=== PATIENT | female | born 1935 | race African-American/Black ===

== ENCOUNTER → 2018-05-26 | Outpatient (CLI) | payer MEDICARE, OTHER ==
[~2018-05-26] MED LIST: ANTIVERT 12.512.5 MG PO; ASPIRIN 81M81 MG/TA2 PO; FLONASE NASAL S16 GM NS; GLUCOPHAGE500 MG/TAB PO; HCTZ 25MG TAB25 MG PO; MEDROL 4MG DOSPA4 MG PO; OMNICEF 300MG300 MG PO; PREDNISONE20 MG PO; PRINIVIL40 MG PO; TOPROL XL100 MG PO; ZESTRIL 10MG10 MG PO; ZITHROMAX Z PA250 MG PO; ZOCOR 20MG20 MG PO
== END ==
LOC: MC.RAD 10:57
DX: Z12.31 Encounter for screening mammogram for malignant neoplasm of breast (principal)

== ENCOUNTER 2019-03-16 11:47 | Emergency (ER) | payer MEDICARE ==
[~2019-03-16] VITALS: Ht 147.3 cm; Wt 72.7 kg
[2019-03-16 12:36] LABS: BASO % 0.5 % (0.0-2.0); EOS # 0.2 (0.0-0.7); EOS % 2.4 % (0-4.0); GRAN # 3.7 (1.4-6.5); GRAN % 58.3 % (42.2-75.2); HEMATOCRIT 44.7 % (37.0-47.0); HEMOGLOBIN 14.1 g/dl (12.5-16.0); LYMPH # 1.9 (1.2-3.4); LYMPH % 30.5 % (20.0-51.0); MEAN CELL VOLUME 89 fl (80.0-100.0); MEAN CORPUSCULAR HEMOGLOBIN 28 pg (27.0-31.0); MEAN CORPUSCULAR HGB CONC 32 g/dl (33.0-37.0); MEAN PLATELET VOLUME 10.5 fl (7.4-10.4); MONO # 0.5 (0.1-0.6); MONO % 7.8 % (1.7-9.3); PLATELET COUNT 258 K/mm3 (130-400); RED BLOOD COUNT 5.02 M/mm3 (4.10-5.30)
[2019-03-16] MEDS ORDERED: FISH OIL 500 M1 EAC1 PO (12:45)
[2019-03-16] MEDS ORDERED: OMEGA-3 1000 MG1 CAP PO (12:45)
[2019-03-16 12:46] LABS: ALANINE AMINOTRANSFERASE 7 U/L (9-52); ALKALINE PHOSPHATASE 73 U/L (50-136); ANION GAP 10 mmol/L (7-16); AST,SGOT 20 U/L (15-37); BILIRUBIN,TOTAL 0.5 mg/dL (0.0-1.0); BLOOD UREA NITROGEN 14 mg/dL (7-17); CALCIUM 9.1 mg/dL (8.4-10.2); CARBON DIOXIDE 29 mmol/L (22-30); CHLORIDE 104 mmol/L (98-107); CREATININE, serum 0.75 (0.52-1.25); GLUCOSE 101 mg/dL (74-106); POTASSIUM 4.1 mmol/L (3.4-5.0); SODIUM 143 mmol/L (137-145); TOTAL PROTEIN 7.7 gm/dL (6.4-8.2)
[2019-03-16 13:03] LABS: TROPONIN-I < 0.012 ng/mL (0.000-0.035)
[2019-03-16 14:00] VITALS: BP 179/85; PULSE 76; TEMP 98.1
== END 2019-03-16 14:00 | disposition home or self-care (01) ==
LOC: COL.ER 11:47
PROVIDERS: Emergency Medicine
DX: I10 Essential (primary) hypertension (principal); E11.9 Type 2 diabetes mellitus without complications; E78.5 Hyperlipidemia, unspecified; Z79.84 Long term (current) use of oral hypoglycemic drugs; Z79.82 Long term (current) use of aspirin

== ENCOUNTER → 2019-05-17 | Outpatient (CLI) | payer MEDICARE ==
[~2019-05-17] MED LIST changes: +FISH OIL 500 M1 EAC1 PO; +OMEGA-3 1000 MG1 CAP PO
== END ==
LOC: MC.RAD 09:33
DX: Z12.31 Encounter for screening mammogram for malignant neoplasm of breast (principal)

== ENCOUNTER → 2020-05-19 | Outpatient (CLI) | payer MEDICARE | LOC: MC.RAD 09:43 | DX: Z12.31 Encounter for screening mammogram for malignant neoplasm of breast (principal) ==

== ENCOUNTER 2020-12-22 12:50 | Inpatient (IN) | payer MEDICARE ==
[~2020-12-22] VITALS: Ht 165.1 cm; Wt 62.5 kg
[~2020-12-22 12:50] MED LIST changes: +ASPIRIN 81M81 MG/TA2 PEG; -ASPIRIN 81M81 MG/TA2 PO; +HCTZ 25MG TAB25 MG PEG; -HCTZ 25MG TAB25 MG PO; +OMEGA-3 1000 MG1 CAP PEG; -OMEGA-3 1000 MG1 CAP PO; +PRINIVIL40 MG PEG; -PRINIVIL40 MG PO
[2020-12-22 13:50] LABS: BASO % 0.3 % (0.0-2.0); EOS # 0.1 (0.0-0.7); EOS % 1.2 % (0-4.0); GRAN # 3.3 (1.4-6.5); GRAN % 56.7 % (42.2-75.2); HEMATOCRIT 41.4 % (37.0-47.0); HEMOGLOBIN 13.3 g/dl (12.5-16.0); LYMPH # 1.9 (1.2-3.4); LYMPH % 32.7 % (20.0-51.0); MEAN CELL VOLUME 89 fl (80.0-100.0); MEAN CORPUSCULAR HEMOGLOBIN 29 pg (27.0-31.0); MEAN CORPUSCULAR HGB CONC 32 g/dl (33.0-37.0); MEAN PLATELET VOLUME 10.5 fl (7.4-10.4); MONO # 0.5 (0.1-0.6); MONO % 8.9 % (1.7-9.3); PLATELET COUNT 239 K/mm3 (130-400); RED BLOOD COUNT 4.66 M/mm3 (4.10-5.30); REDCELL DISTRIBUTION WIDTH-CV 12.4 % (11.5-14.5)
[2020-12-22 14:00] LABS: PROTHROMBIN TIME 10.8 SECONDS (9.7-12.8)
[2020-12-22 14:03] LABS: ALANINE AMINOTRANSFERASE 9 U/L (4-34); ALBUMIN 3.9 gm/dL (3.5-5.0); ALKALINE PHOSPHATASE 48 U/L (50-136); ANION GAP 4 mmol/L (7-16); AST,SGOT 21 U/L (15-37); BILIRUBIN,TOTAL 0.4 mg/dL (0.0-1.0); BLOOD UREA NITROGEN 20 mg/dL (7-17); CALCIUM 10.2 mg/dL (8.4-10.2); CARBON DIOXIDE 30 mmol/L (22-30); CHLORIDE 106 mmol/L (98-107); CREATININE, serum 0.99 (0.52-1.25); GLUCOSE 100 mg/dL (74-106); POTASSIUM 3.9 mmol/L (3.4-5.0); SODIUM 140 mmol/L (137-145)
[2020-12-22] MEDS ORDERED: NORVASC 5MG5 MG/TAB PEG (14:16)
[2020-12-22] MEDS ORDERED: APOAEQUORIN (14:17)
[2020-12-22 14:18] LABS: TROPONIN-I < 0.012 ng/mL (0.000-0.035)
[2020-12-22] MEDS ORDERED: LIPITOR 80MG80 MG PEG (14:18)
[2020-12-22] MEDS ORDERED: HCTZ 25MG TAB25 MG PO (14:18)
[2020-12-22] MEDS ORDERED: PREDFORTE15ML OU (14:19)
[2020-12-22] MEDS ORDERED: LEADER EYE ITCH5 ML OP (14:19)
--- NOTE | 2020-12-22 18:50 | NUR ---
PT ARRIVES TO ROOM 326 VIA CART FROM ED. IS ALERT, ORIENTED X2. SON AT BEDSIDE. PT HAS CARDIZEM GTT AT 10CC/HR INFUSING TO RIGHT AC SITE. HAS IVF TO LEFT UPPER ARM IV SITE, NO REDNESS OR SWELLING NOTED. 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 IS WEAK FROM HX OF CVA LAST YEAR. FORGETFUL AND CAN BE IMPULSIVE, BED ALARM SET FOR SAFETY. ORIENTED TO CALL LIGHT.
[2020-12-22 19:39] LABS: PARTIAL THROMBOPLASTIN TIME 34.3 SECONDS (26.0-37.0)
--- NOTE | 2020-12-22 20:00 | NUR ---
NOTIFIED VELMA GUPTA OF PTS HR AND ORDER FOR CARDIZEM TO BE 5CC/HR. DECREASED RATE AT THIS TIME.
[2020-12-22 20:21] VITALS: BP 167/57; PULSE 70; TEMP 98.4
--- NOTE | 2020-12-22 20:30 | NUR ---
INITIATED HEPARIN GTT, IVF DC'D. HEPARIN INFUSING AT 14CC/HR TO LEFT UPPER ARM SITE. PT TAKES HS MEDS WITHOUT PROBLEM. ASSISTED TO BSC WITH 2, WEAKNESS OF RT SIDE APPARENT. BACK TO BED WITH BED ALARM SET.
[2020-12-23 00:52] VITALS: BP 149/46; PULSE 55; TEMP 98.1
--- NOTE | 2020-12-23 01:35 | NUR ---
NOTIFIED VELMA GUPTA OF PTS HR IN 40-50'S. STOPPED CARDIZEM GTT AT THIS TIME.
--- NOTE | 2020-12-23 03:00 | NUR ---
HEP XA >2.0, STOPPED HEP GTT AT THIS TIME FOR 2 HOURS.
[2020-12-23 04:19] VITALS: BP 143/53; PULSE 48; TEMP 97.7
--- NOTE | 2020-12-23 05:10 | NUR ---
LAB UNABLE TO DRAW HEP XA AT THIS TIME.
[2020-12-23 07:46] VITALS: BP 174/88; PULSE 62; TEMP 97.6
[2020-12-23 07:48] LABS: PARTIAL THROMBOPLASTIN TIME 81.9 SECONDS (26.0-37.0)
--- NOTE | 2020-12-23 11:02 | NUR ---
Patient has been doing ok this morning. She has been alert but confused. Attempted to give her pills this am but she was not able to swallow them or the water was trying to use to give her pills. She was able to answer questions but did not seem to understand she needed to try swallowing. Her son went home but will be back later. No other changes at this time. Call light within reach.
[2020-12-23 11:10] VITALS: BP 157/68; PULSE 47; TEMP 97.9
--- NOTE | 2020-12-23 11:57 | NUR ---
First visit from the cad detailer. Patient was asleep, cad detailer prayed for the patient while standing outside their door.
[2020-12-23 15:48] VITALS: BP 171/65; PULSE 62; TEMP 98.1
--- NOTE | 2020-12-23 16:57 | NUR ---
Patient seems to be getting worse this afternoon. She is still alert and able to answer most yes and no questions. Denies pain. Elaine has seen her and she was able to swallow with them. Waiting for MRI to be completed. Her son was here when ST worked with her so he is aware of what is going on. Hep Xa level was high, turned off per protocol. No other changes at this time. Call light within reach.
[2020-12-23 18:15] LABS: PARTIAL THROMBOPLASTIN TIME 108.4 SECONDS (26.0-37.0)
--- NOTE | 2020-12-23 19:31 | NUR ---
Patient went down for MRI. Spoke with Vicki GUPTA about patients hep xa and PTT. Her PTT is 108.4 and her Hep Xa continues to be high as well. She changed the medication and discontinued heparin drip. No other changes at this time. Call light within reach. Bed alarm on.
--- NOTE | 2020-12-23 20:00 | NUR ---
PATIENT IS ORIENTED X2 AND DISPLAYS SOME CONFUSION/FORGETFULNESS. NOTED ELEVATED B/P, GAVE PRN HYDRALAZINE ORDER. ALL OTHER VSS ON TELE. HEART SOUNDS IRREGULAR. PATIENT ADMITTED TO SURGICAL FLOOR WITH A-FIB THAT IS RATE CONTROLED IN THE 60'S. PATIENT IS SCHEDULED FOR LOOP RECORDER IN THE AM. NPO. HEAD TO TOE ASSESSMENT COMPLETE. PATIENT GOING DOWN FOR MRI. HEPARIN GTT STOPPED. SEE ORDERS FOR LOVENOX.
[2020-12-23 20:05] VITALS: BP 142/103; PULSE 96; TEMP 97.5
[2020-12-24 00:35] VITALS: BP 157/70; PULSE 84; TEMP 97.6
[2020-12-24 03:50] VITALS: BP 152/76; PULSE 84; TEMP 97.9
[2020-12-24 07:15] LABS: HEMATOCRIT 41.7 % (37.0-47.0); HEMOGLOBIN 13.3 g/dl (12.5-16.0); MEAN CELL VOLUME 90 fl (80.0-100.0); MEAN CORPUSCULAR HEMOGLOBIN 29 pg (27.0-31.0); MEAN CORPUSCULAR HGB CONC 32 g/dl (33.0-37.0); MEAN PLATELET VOLUME 10.5 fl (7.4-10.4); PLATELET COUNT 232 K/mm3 (130-400); RED BLOOD COUNT 4.66 M/mm3 (4.10-5.30); REDCELL DISTRIBUTION WIDTH-CV 12.7 % (11.5-14.5)
[2020-12-24 07:36] VITALS: BP 149/87; PULSE 68; TEMP 98.7
--- NOTE | 2020-12-24 09:09 | NUR ---
(late entry 12/23) Network Engineer Administrator contacted the patient's son, Adan Barrera to complete intake. The patient lives in [place] with Adan. The patient has cane, walker, 4WW and a bedside commode. The patient's PCP is and patient receives medications from [facility]. The patient does not have advanced directives in the EMR. Adan states they complete. The state's attorney Chris Gurrola completed them. SW addressed the patient's falls with Adan and discussed post acute rehab. Adan states he would like to do what the patient would like. He would be agreeable to whatever she thinks is best. PT is recommending post acute rehab. SYLVIE met with the patient to present Medicare.gov's list of SNF and to discuss PTs recommendation. She states that she has been to [facility] and does not want to return there. The patient's first choice is [facility] and second [facility]. Referrals sent. Awaiting screens. SYLVIE contacted Chris Gurrola' office regarding the DPOA-HC. The operator receptionist states he would check with Mr. Gurrola regarding sending DPOA-HC. Awaiting response. *Discharge disposition: SNF. First choice [facility] and Second Choice [facility]. Awaiting screens.
--- NOTE | 2020-12-24 11:00 | NUR ---
Patient is not able to swallow. She tries but does not have the force to make the liquid or food go down. She is very weak. Had to suction her mouth after she tried to eat breakfast because the food would not go down. Oral care provided at this time as well. She is able to answer some yes and now questions, she denies pain and nausea. She is incontinent of urine, no bowel movements yet. Have been turning side to side. She tolerates repositioning well. She is still able to use her hands without issues and lift her legs. She struggles with speach and swallowing. Her son has been here this morning. No other changes at this time. Call light within reach.
[2020-12-24 12:00] VITALS: BP 158/71; PULSE 74; TEMP 98.6
[2020-12-24 16:00] VITALS: BP 154/62; PULSE 79; TEMP 99
--- NOTE | 2020-12-24 16:30 | NUR ---
Oscar from [facility] reports they have accepted the patient for post acute rehab and he will submit for authorization. Yarelis from [facility] reports they can accept the patient for post acute rehab.
[2020-12-24 16:44] LABS: MAGNESIUM 1.7 mg/dL (1.6-2.3); PHOSPHOROUS 3.8 mg/dL (2.5-4.5)
[2020-12-24 16:45] LABS: BASO % 0.2 % (0.0-2.0); EOS # 0.1 (0.0-0.7); GRAN # 3.5 (1.4-6.5); GRAN % 56.8 % (42.2-75.2); HEMATOCRIT 43.4 % (37.0-47.0); HEMOGLOBIN 13.8 g/dl (12.5-16.0); LYMPH # 1.9 (1.2-3.4); LYMPH % 31.4 % (20.0-51.0); MEAN CELL VOLUME 89 fl (80.0-100.0); MEAN CORPUSCULAR HEMOGLOBIN 28 pg (27.0-31.0); MEAN CORPUSCULAR HGB CONC 32 g/dl (33.0-37.0); MEAN PLATELET VOLUME 11.5 fl (7.4-10.4); MONO # 0.6 (0.1-0.6); MONO % 10.4 % (1.7-9.3); PLATELET COUNT 238 K/mm3 (130-400); RED BLOOD COUNT 4.89 M/mm3 (4.10-5.30); REDCELL DISTRIBUTION WIDTH-CV 12.7 % (11.5-14.5)
[2020-12-24 16:49] LABS: ALBUMIN 3.9 gm/dL (3.5-5.0); BILIRUBIN,TOTAL 0.8 mg/dL (0.0-1.0); CALCIUM 9.5 mg/dL (8.4-10.2); CREATININE, serum 0.84 (0.52-1.25); POTASSIUM 3.5 mmol/L (3.4-5.0)
[2020-12-24 16:51] LABS: PRE ALBUMIN 18.3 mg/dL (17.6-36.0)
--- NOTE | 2020-12-24 18:30 | NUR ---
Patient has been doing well this afternoon. She got the dobhoff tube placed for tube feeds and medications. It is flusing well without issues. Explained this to her son and daughter today. Her son seems to have some confusion about what she will need after discharge. Explained she will need rehab due to the stroke. He still thought he would be taking her home. Explained that is not likely at this time. He verbalized understanding. She got her Loop recorder placed late this afternoon as well. No other changes at this time. Call light within reach.
[2020-12-24 19:40] VITALS: BP 130/66; PULSE 103; TEMP 97
--- NOTE | 2020-12-24 19:44 | NUR ---
Tube feeds started. Was supposed to start sooner but was waiting for the feeding. Patient so far is tolerating the feedings. Started at ordered rate of 15ml/hr with a 100ml Q4hr water flush. Explained to die sinking machine operator nurse that this needs increased every 8 hours with the goal of 45ml/hr. No other changes at this time. Call light within reach.
--- NOTE | 2020-12-24 21:32 | NUR ---
REPORT RECEIVED FROM NURSE ZENY. PATIENT RESTING IN BED, STARTED ON NEW TUBE FEED. HOB ELEVATED. PATIENT APPEARED COMFORTABLE ON NO APPARENT DISTRESS. BED ALARM ON. WILL CONTINUE TO MONITOR.
[2020-12-25] VITALS (7 sets, daily range): BP systolic 106–193; BP diastolic 53–71; PULSE 69–97; TEMP 97.5–99
[2020-12-25 06:43] LABS: BASO % 0.2 % (0.0-2.0); EOS % 0.8 % (0-4.0); GRAN # 2.9 (1.4-6.5); GRAN % 59.4 % (42.2-75.2); HEMATOCRIT 39.5 % (37.0-47.0); HEMOGLOBIN 12.4 g/dl (12.5-16.0); LYMPH # 1.3 (1.2-3.4); LYMPH % 26.5 % (20.0-51.0); MEAN CELL VOLUME 91 fl (80.0-100.0); MEAN CORPUSCULAR HEMOGLOBIN 28 pg (27.0-31.0); MEAN CORPUSCULAR HGB CONC 31 g/dl (33.0-37.0); MEAN PLATELET VOLUME 11.4 fl (7.4-10.4); MONO # 0.6 (0.1-0.6); MONO % 12.9 % (1.7-9.3); PLATELET COUNT 234 K/mm3 (130-400); RED BLOOD COUNT 4.36 M/mm3 (4.10-5.30); REDCELL DISTRIBUTION WIDTH-CV 12.9 % (11.5-14.5)
[2020-12-25 06:55] LABS: ALBUMIN 3.4 gm/dL (3.5-5.0); BILIRUBIN,TOTAL 0.8 mg/dL (0.0-1.0); CALCIUM 9.4 mg/dL (8.4-10.2); CREATININE, serum 1.34 (0.52-1.25); POTASSIUM 3.4 mmol/L (3.4-5.0); TOTAL PROTEIN 7.1 gm/dL (6.4-8.2)
--- NOTE | 2020-12-25 08:29 | NUR ---
CONSULT CALLED TO .
[2020-12-25 08:41] LABS: CHOLESTEROL RISK RATIO 5.3
--- NOTE | 2020-12-25 09:05 | NUR ---
PT SLEEPING IN BED DURING ASSESSMENT. PT HERE TO WORK WITH PT.PT ABLE TO FOLLOW DIRECTIONS. JEVITY RUNNING @ 30 MLS/HR WITH GOAL OF 45 TO BE ACHIEVED AT 12:00. DR. JIM NOTIFIED OF CONSULT.
--- NOTE | 2020-12-25 09:58 | NUR ---
Chris Gurrola' office emailed the patient's DPOA-HC to this Airplane Dispatch Clerk. It designates the patient's daughter, Jovana and son, Adan. A copy was placed in the chart. SW attended clinical rounds with the team. Palliative Care consulted.
--- NOTE | 2020-12-25 11:04 | NUR ---
Oscar with [facility] contacted this Crusher Operator regarding the patient's insurance. [facility] is not in-network. The patient has a $5500 deductible. The following are copays apply if the deductible has not been met. Days 1-20 $0 copay; Days 21-57 $184, and Days 58-[address] [facility] has accepted the patient for post acute rehab if the patient and family are agreeable to the above copays.
--- NOTE | 2020-12-25 14:50 | NUR ---
I was told by Dr Lew today that he had talked with son and didn't feel that family meeting was now needed as son has opted for a PEG tube to be placed. He is very aware that his mother may not show a lot of improvement from this stroke. He is aware that she does not seem to be able to swallow, that she has been getting tube feeding through dobhoff and how must decide if wants feeding tube placed. Son Adan reports that he believes that she would want everything done to help her get better. He is aware of the risks of having a feeding tube placed including aspiration. He also asked that I call his sister Jovana who is also a DPOA-HC and visit with her. She is in agreement with her brother and reported that they had already talked about a feeding tube placement. She seemed pleased that it would be placed tomorrow. Jovana reports that she will try to come early next week to be with her mother but also must prepare for what could be a long stay. Support provided to Adan and Jovana. They are not ready to look at hospice yet although both clearly verbalize the very limited recovery and risks that are present.
--- NOTE | 2020-12-25 17:13 | NUR ---
PT HAS BEEN INCONTINENT OF BLADDER THIS SHIFT. PERICARE AND INCONTINENT CARES PROVIDED NEEDED. SON HAS BEEN IN TO SEE PT AGAIN THIS PM.
--- NOTE | 2020-12-25 20:00 | NUR ---
PT RESPONDS TO QUESTIONS, ORIENTED X2. HAS DOBBHOFF TO RT JUVE, OMAYRA AT 34CM. HAS TUBE FEEDING INFUSING AT 45CC/HR. RT EYE BLIND. LEFT ARM FLACCID. IS INCONTINENT OF URINE. IVF TO RIGHT UPPER ARM PICC. SCDS ON.
--- NOTE | 2020-12-25 21:00 | NUR ---
PO MEDS CRUSHED AND GIVEN PER DOBBHOFF. PT GIVEN ORAL CARES AND OCC SUCTIONING OF THIN SECRETIONS.
[2020-12-26] VITALS (15 sets, daily range): BP systolic 126–194; BP diastolic 52–97; PULSE 64–98; TEMP 97.6–99.3
--- NOTE | 2020-12-26 00:30 | NUR ---
TUBE FEEDING STOPPED, PT TO HAVE EGD W/PEG TUBE PLACED TODAY.
--- NOTE | 2020-12-26 04:00 | NUR ---
PT WILL TALK WITH STAFF, ORIENTED X2. TUBE FEED STOPPED FOR EGD/PEG PLACEMENT TODAY. IVF CONTINUE TO RT PICC.
[2020-12-26 06:53] LABS: HEMATOCRIT 37.1 % (37.0-47.0); HEMOGLOBIN 11.9 g/dl (12.5-16.0); MEAN CELL VOLUME 90 fl (80.0-100.0); MEAN CORPUSCULAR HEMOGLOBIN 29 pg (27.0-31.0); MEAN CORPUSCULAR HGB CONC 32 g/dl (33.0-37.0); MEAN PLATELET VOLUME 11.5 fl (7.4-10.4); PLATELET COUNT 200 K/mm3 (130-400); RED BLOOD COUNT 4.12 M/mm3 (4.10-5.30); REDCELL DISTRIBUTION WIDTH-CV 12.8 % (11.5-14.5)
[2020-12-26 07:06] LABS: CREATININE, serum 0.83 (0.52-1.25); POTASSIUM 3.4 mmol/L (3.4-5.0)
[2020-12-26 07:22] LABS: CALCIUM 8.7 mg/dL (8.4-10.2)
--- NOTE | 2020-12-26 08:00 | NUR ---
Patient in bed, alert and oriented x 3, slow to respond. Answers questions appropriately. Left arm flacid. Dobhoff to right arora. PICC line to CALLI without complications. Fluids infusing per orders. Denies needs at this time.
--- NOTE | 2020-12-26 09:37 | NUR ---
I have spoken with Adan and Jovana by phone this morning to clarify that we will have a family meeting on Tuesday. Jovana is planning on being here and both she and Adan can do a family meeting on Tuesday and visit with their Mom but that is the only day that Jovana can visit as Adan is the designated visitor. Both verbalize understanding.
--- NOTE | 2020-12-26 12:00 | NUR ---
Patient to endo by bed.
--- NOTE | 2020-12-26 13:03 | NUR ---
Patient back to room 326 by bed. Post op VSS and post op fluids infusing per orders. Denies needs at this time.
--- NOTE | 2020-12-26 16:17 | NUR ---
Contacted Frida GUPTA, post void residual of 300 ml. No new orders at this time.
--- NOTE | 2020-12-26 18:34 | NUR ---
Patient doing well throughout the day, repositioned throughout the day. Patient sitting up at approximately 60 degrees. Will answer questions appropriately, slow to answer. Denies needs at this time. Will report off to material handler 1st shift.
--- NOTE | 2020-12-26 20:31 | NUR ---
Patient has a PICC line that just put in at noon. She have a oral pill that was hold for she is NPO. Oral care given. She is awake and oriented but very slow to answer questions. She is calm and comfortablem in bed. Denies pain or SOB. bed alarm is on and call light is within reach continue to follow.
[2020-12-27 03:00] LABS: COLLECTION METHOD CLEAN CATCH
[2020-12-27 03:05] LABS: PH 6 (5-8); SQUAMOUS EPITHELIAL 0-2 /hpf; URINE APPEARANCE Clear; URINE BACTERIA None Seen /hpf; URINE BILIRUBIN Negative (NEGATIVE); URINE BLOOD Negative (NEGATIVE); URINE COLOR Yellow; URINE GLUCOSE Negative (NEGATIVE); URINE KETONE Trace (NEGATIVE); URINE LEUKOCYTE ESTERASE Negative (NEGATIVE); URINE NITRATE Negative (NEGATIVE); URINE PROTEIN(semi-quant) Negative (NEGATIVE); URINE RBC 0-2 /hpf; URINE UROBILINOGEN Negative (NEGATIVE); URINE WBC 0-2 /hpf
[2020-12-27 03:59] VITALS: BP 151/48; PULSE 73; TEMP 98.3
[2020-12-27 06:14] LABS: BASO % 0.3 % (0.0-2.0); EOS % 0.1 % (0-4.0); GRAN # 8.2 (1.4-6.5); HEMOGLOBIN 11.3 g/dl (12.5-16.0); LYMPH # 1.3 (1.2-3.4); LYMPH % 12.5 % (20.0-51.0); MEAN CELL VOLUME 89 fl (80.0-100.0); MEAN CORPUSCULAR HEMOGLOBIN 28 pg (27.0-31.0); MEAN CORPUSCULAR HGB CONC 32 g/dl (33.0-37.0); MEAN PLATELET VOLUME 12.1 fl (7.4-10.4); MONO # 0.9 (0.1-0.6); MONO % 8.5 % (1.7-9.3); PLATELET COUNT 175 K/mm3 (130-400); RED BLOOD COUNT 4.01 M/mm3 (4.10-5.30); REDCELL DISTRIBUTION WIDTH-CV 12.7 % (11.5-14.5)
[2020-12-27 06:15] LABS: HEMATOCRIT 35.7 % (37.0-47.0)
[2020-12-27 06:26] LABS: CALCIUM 7.7 mg/dL (8.4-10.2); CREATININE, serum 0.65 (0.52-1.25); MAGNESIUM 1.5 mg/dL (1.6-2.3); POTASSIUM 3.2 mmol/L (3.4-5.0)
[2020-12-27 07:23] VITALS: BP 130/63; PULSE 71; TEMP 97.7
[2020-12-27 11:29] VITALS: BP 154/59; PULSE 77; TEMP 97.6
--- NOTE | 2020-12-27 18:30 | NUR ---
Patient slept most the day. Her son came by twice to visit her. Repositioned her throughout the day. She is able to answer yes and now questions. She is not have to lift or use left hand. Her left leg is weak as well. Did oral care every few hours today. She swallowed once but was very weak. First tube feeding given this afternoon, she tolerated well. Sat her up in the bed with the tube feeding. She asked about eating, explained again why she can't eat. Denies nausea or pain. No other changes at this time. Call light within reach.
[2020-12-27 20:36] VITALS: BP 136/56; PULSE 62; TEMP 98.1
--- NOTE | 2020-12-27 21:30 | NUR ---
Pt. laying in bed at this time. Pt. is alert and confused. PICC to rt. upper arm, IV fluids infusing per orders. Peg to intact, tube feeding provided per orders. Pt. tolerated well. Pt. denies pain or other needs, call light within reach.
[2020-12-27 23:59] VITALS: BP 117/43; PULSE 65; TEMP 98.2
[2020-12-28] VITALS (7 sets, daily range): BP systolic 106–146; BP diastolic 21–66; PULSE 61–73; TEMP 97.5–98.5
[2020-12-28 06:19] LABS: BASO % 0.2 % (0.0-2.0); EOS # 0.1 (0.0-0.7); EOS % 1.1 % (0-4.0); GRAN % 75.1 % (42.2-75.2); HEMOGLOBIN 10.7 g/dl (12.5-16.0); LYMPH # 0.9 (1.2-3.4); LYMPH % 11.5 % (20.0-51.0); MEAN CELL VOLUME 91 fl (80.0-100.0); MEAN CORPUSCULAR HEMOGLOBIN 29 pg (27.0-31.0); MEAN CORPUSCULAR HGB CONC 32 g/dl (33.0-37.0); MEAN PLATELET VOLUME 12.5 fl (7.4-10.4); MONO # 0.9 (0.1-0.6); MONO % 11.6 % (1.7-9.3); PLATELET COUNT 178 K/mm3 (130-400); RED BLOOD COUNT 3.71 M/mm3 (4.10-5.30)
[2020-12-28 06:27] LABS: HEMATOCRIT 33.7 % (37.0-47.0)
[2020-12-28 06:31] LABS: CALCIUM 8.3 mg/dL (8.4-10.2); CREATININE, serum 0.75 (0.52-1.25); MAGNESIUM 2.4 mg/dL (1.6-2.3); POTASSIUM 3.8 mmol/L (3.4-5.0)
--- NOTE | 2020-12-28 09:10 | NUR ---
Greta faxed over auth to [facility]. 12/28 at 9:10 AM
--- NOTE | 2020-12-28 18:30 | NUR ---
Patient did well today. Denies nausea and pain. Tolerating her tube feedings without issues. Started her on the full can of feeds. Less than 20ml noted when checking residuals. She did swallow a small amount of liquid when doing oral care, no choking noted. Eagle changed twice today. She is passing flatus and thought she had a bowel movement, has not had once sice before admit. Her family was at bedside most the day. No other changes at this time. Call light within reach.
[2020-12-29 00:30] VITALS: BP 135/49; PULSE 63; TEMP 98.9
[2020-12-29 04:00] VITALS: BP 140/45; PULSE 62; TEMP 98.9
--- NOTE | 2020-12-29 06:00 | NUR ---
PT RESTING QUIETLY MOST OF NIGHT. REPOSITIONED Q 2-3 HOURS. PT HAD SEVERAL LOOSE STOOLS DURING THE NIGHT. NO c/o PAIN. G-TUBE WORKING WELL.
[2020-12-29 06:58] LABS: BASO % 0.1 % (0.0-2.0); EOS # 0.1 (0.0-0.7); GRAN # 5.5 (1.4-6.5); GRAN % 76.5 % (42.2-75.2); LYMPH % 13.5 % (20.0-51.0); MEAN CELL VOLUME 91 fl (80.0-100.0); MEAN CORPUSCULAR HEMOGLOBIN 28 pg (27.0-31.0); MEAN CORPUSCULAR HGB CONC 31 g/dl (33.0-37.0); MEAN PLATELET VOLUME 12.9 fl (7.4-10.4); MONO # 0.6 (0.1-0.6); MONO % 8.5 % (1.7-9.3); PLATELET COUNT 207 K/mm3 (130-400); RED BLOOD COUNT 3.92 M/mm3 (4.10-5.30)
[2020-12-29 07:00] LABS: HEMATOCRIT 35.5 % (37.0-47.0)
[2020-12-29 07:07] LABS: ALBUMIN 2.9 gm/dL (3.5-5.0); BILIRUBIN,TOTAL 0.3 mg/dL (0.0-1.0); CALCIUM 8.9 mg/dL (8.4-10.2); CREATININE, serum 0.71 (0.52-1.25); MAGNESIUM 2.1 mg/dL (1.6-2.3); PHOSPHOROUS 3.2 mg/dL (2.5-4.5); POTASSIUM 3.5 mmol/L (3.4-5.0); TOTAL PROTEIN 6.4 gm/dL (6.4-8.2)
[2020-12-29 07:16] LABS: PRE ALBUMIN 10.3 mg/dL (17.6-36.0)
[2020-12-29 07:43] VITALS: BP 143/45; PULSE 66; TEMP 98.2
--- NOTE | 2020-12-29 09:22 | NUR ---
transfer and line up worker met with patient's son and daughter to discuss discharge planning. Both verbalize they wish to continue plan for rehabilitation placement and chose [facility] as first desired facility. Worker contacted [place] at [facility] and advised of the above information. Worker faxed clinical updates to [place].
--- NOTE | 2020-12-29 09:24 | NUR ---
Met with son and daughter at bedside with patient after they had spoken with maricruz Quiros LMSW. They are again reporting that they want full rehab for Gudelia and have requested that she go to [facility]. All three of the family reported that this was their wish. Pt seemed unaware that she had a feeding tube and I had to show it to her for her to believe me--she was very surprised. I also addressed the visitation rules at this time and advised them that Adan is the authorized visitor. Jovana may visit today but once she leaves, that is the end of her authorized visit. Both Adan and Jovana verbalized understanding. I also spoke with Frida GUPTA and Maricruz Quiros after this meeting.
[2020-12-29 11:27] VITALS: BP 136/47; PULSE 65; TEMP 98.6
--- NOTE | 2020-12-29 12:15 | NUR ---
DR.KUMAR FIORE
[2020-12-29] MEDS ORDERED: ELIQUIS 5MG PO (14:41)
[2020-12-29] MEDS ORDERED: COREG12.5 MG PEG (14:44)
[2020-12-29] MEDS ORDERED: APRESOLINE 10MG10 MG PEG (14:44)
[2020-12-29] MEDS ORDERED: TYLENOL 325MG325 MG PO (14:45)
[2020-12-29] MEDS ORDERED: NOVOLOG 100U100 U/M1 SQ (14:48)
[2020-12-29] MEDS ORDERED: PACERONE200 MG PO (14:54)
--- NOTE | 2020-12-29 16:38 | NUR ---
Oscar with [facility] states they can accept patient and an authorization is not required for patient's insurance. lay out worker arranged a 4:30 transfer time via facility wheelchair. Worker contacted patient's son, Adan, and notified of the above information. Adan states he and his sister have talked with Oscar and are aware of transfer plans and insurance coverage information. Transfer to skilled care at [facility] today.
--- NOTE | 2020-12-29 17:00 | NUR ---
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 INFORMATION PACKET GIVEN TO [employer]. PATIENT ASSISTED INTO WHEELCHAIR AND IS DISCHARGING WITH RUE PICC LINE & ABD PEG TUBE INPLACE. ATTEMPTED TO CALL REPORT TO [facility] TWICE WITH NO ANSWER.
--- NOTE | 2021-01-08 11:19 | NUR ---
The patient recently discharged from the hospital on 12/29 and went to [facility] for a skilled stay. SYLVIE confirmed from Oscar at [facility] that the patient is still at their facility for a skilled stay. The hospitalist notified SYLVIE that he spoke to the patient's son/DPOA-HC, Adan, and Adan is wanting to pursue hospice for the patient. SYLVIE contacted Adan to review the above. Adan confirms that he is wanting to pursue hospice. SYLVIE informed him of hospice at [facility] or the [facility] and how room and board is not covered at a facility for hospice. Adan verbalized understanding. Adan reports that he would prefer the hospice house, due to their sliding scale fee. SYLVIE contacted and faxed a referral to Didier [facility]. Didier reports that they do have a bed available and that the earliest they may be able to take the patient is tomorrow. Awaiting screen. SYLVIE updated the clinical team and Oscar at [facility] of the above. The patient's PCP is Dr. Samreen Schreiber and her DPOA-HC is in EMR. It designates Adan and her daughter, Jovana Potter. *Discharge plan: [facility]. Awaiting screen.
== END 2020-12-29 17:00 | DRG 41 ==
LOC: COL.ER 12:50 → SURG 16:44
PROVIDERS: Emergency Medicine; Internal Medicine Nephrology; Physician Assistant; ADMIT Internal Medicine
PROC: 02HV33Z Insertion of Infusion Device into Superior Vena Cava, Percutaneous Approach (ICD-10-PCS; 2020-12-23)
PROC: 0JH632Z Insertion of Monitoring Device into Chest Subcutaneous Tissue and Fascia, Percutaneous Approach (ICD-10-PCS; principal; 2020-12-24)
PROC: 0DH63UZ Insertion of Feeding Device into Stomach, Percutaneous Approach (ICD-10-PCS; 2020-12-24)
PROC: 3E0G76Z Introduction of Nutritional Substance into Upper GI, Via Natural or Artificial Opening (ICD-10-PCS; 2020-12-24)
DX: I63.411 Cerebral infarction due to embolism of right middle cerebral artery (principal); G81.94 Hemiplegia, unspecified affecting left nondominant side; N17.9 Acute kidney failure, unspecified; R13.11 Dysphagia, oral phase; E11.9 Type 2 diabetes mellitus without complications; I10 Essential (primary) hypertension; I44.0 Atrioventricular block, first degree; H54.61 Unqualified visual loss, right eye, normal vision left eye; I48.91 Unspecified atrial fibrillation; E78.5 Hyperlipidemia, unspecified; Z20.822 Contact with and (suspected) exposure to COVID-19; E83.42 Hypomagnesemia; I65.23 Occlusion and stenosis of bilateral carotid arteries; I16.0 Hypertensive urgency; Z79.84 Long term (current) use of oral hypoglycemic drugs; Z79.82 Long term (current) use of aspirin
CPT/HCPCS: 99223-AI; 99232-AI; 99233-AI; 99239; A9585; C1751; C1764; J0360; J0690; J1644; J1650; J2704; J3475; J7030; J7050

== ENCOUNTER 2021-01-04 12:20 | Emergency (ER) | payer MEDICARE ==
[~2021-01-04] VITALS: Ht 165.1 cm; Wt 68.2 kg
[~2021-01-04 12:20] MED LIST changes: +APOAEQUORIN; +APRESOLINE 10MG10 MG PEG; +COREG12.5 MG PEG; +ELIQUIS 5MG PO; +HCTZ 25MG TAB25 MG PO; +LEADER EYE ITCH5 ML OP; +LIPITOR 80MG80 MG PEG; +NORVASC 5MG5 MG/TAB PEG; +NOVOLOG 100U100 U/M1 SQ; +PACERONE200 MG PO; +PREDFORTE15ML OU; +TYLENOL 325MG325 MG PO
[2021-01-04 12:23] VITALS: TEMP 97.2
[2021-01-04 13:18] LABS: BASO % 0.2 % (0.0-2.0); EOS # 0.2 (0.0-0.7); EOS % 1.6 % (0-4.0); GRAN # 10.3 (1.4-6.5); GRAN % 75.6 % (42.2-75.2); LYMPH # 1.8 (1.2-3.4); LYMPH % 13.3 % (20.0-51.0); MEAN CELL VOLUME 90 fl (80.0-100.0); MEAN CORPUSCULAR HGB CONC 32 g/dl (33.0-37.0); MEAN PLATELET VOLUME 11.2 fl (7.4-10.4); MONO # 1.1 (0.1-0.6); MONO % 8.2 % (1.7-9.3); PLATELET COUNT 359 K/mm3 (130-400); RED BLOOD COUNT 3.41 M/mm3 (4.10-5.30); REDCELL DISTRIBUTION WIDTH-CV 12.2 % (11.5-14.5)
[2021-01-04 13:19] LABS: HEMATOCRIT 30.7 % (37.0-47.0); HEMOGLOBIN 9.8 g/dl (12.5-16.0); MEAN CORPUSCULAR HEMOGLOBIN 29 pg (27.0-31.0)
[2021-01-04 13:21] LABS: ALBUMIN 3.1 gm/dL (3.5-5.0); BILIRUBIN,TOTAL 0.2 mg/dL (0.0-1.0); CALCIUM 9.1 mg/dL (8.4-10.2); CREATININE, serum 0.93 (0.52-1.25); POTASSIUM 4.2 mmol/L (3.4-5.0); TOTAL PROTEIN 6.6 gm/dL (6.4-8.2)
[2021-01-04 15:09] LABS: PH 7 (5-8); URINE APPEARANCE Hazy; URINE BACTERIA Rare /hpf; URINE BILIRUBIN Negative (NEGATIVE); URINE BLOOD Negative (NEGATIVE); URINE COLOR Yellow; URINE GLUCOSE Negative (NEGATIVE); URINE KETONE Negative (NEGATIVE); URINE LEUKOCYTE ESTERASE 2+ (NEGATIVE); URINE NITRATE Negative (NEGATIVE); URINE PROTEIN(semi-quant) Negative (NEGATIVE); URINE RBC 0-2 /hpf; URINE UROBILINOGEN Negative (NEGATIVE)
[2021-01-04 15:23] VITALS: BP 132/69; PULSE 68
[2021-01-05 11:50] LABS: COLLECTION METHOD CATHETER
== END 2021-01-04 15:26 | disposition home or self-care (01) ==
LOC: COL.ER 12:20
PROVIDERS: Family Medicine
DX: R11.2 Nausea with vomiting, unspecified (principal); D72.829 Elevated white blood cell count, unspecified; E11.9 Type 2 diabetes mellitus without complications; I10 Essential (primary) hypertension; E78.5 Hyperlipidemia, unspecified; Z86.73 Personal history of transient ischemic attack (TIA), and cerebral infarction without residual deficits; Z79.4 Long term (current) use of insulin; Z79.01 Long term (current) use of anticoagulants; Z79.82 Long term (current) use of aspirin; Z79.899 Other long term (current) drug therapy

== ENCOUNTER → 2021-01-06 | Outpatient (REF) ==
[~2021-01-06] MED LIST changes: +ATIVAN 0.50.5 MG/TAB PO; +ELIQUIS 5MG PEG; +JEVITY 1.5 CAL237 ML PO; +PACERONE400 MG PEG; +PROTONIX 40MG T40 MG PEG; +ROXANOL 20MG20 MG/ML SL; +TRANSDERM-0.5 MG/21 TD; +TYLENOL 325MG325 MG PEG
[2021-01-06 13:08] LABS: BASO # 0.1 (0.0-0.2); BASO % 0.2 % (0.0-2.0); EOS # 0.1 (0.0-0.7); EOS % 0.7 % (0-4.0); GRAN # 16.6 (1.4-6.5); GRAN % 83.1 % (42.2-75.2); LYMPH # 1.9 (1.2-3.4); LYMPH % 9.6 % (20.0-51.0); MEAN CELL VOLUME 91 fl (80.0-100.0); MEAN CORPUSCULAR HGB CONC 31 g/dl (33.0-37.0); MEAN PLATELET VOLUME 12.4 fl (7.4-10.4); MONO # 1.1 (0.1-0.6); MONO % 5.6 % (1.7-9.3); PLATELET COUNT 331 K/mm3 (130-400); RED BLOOD COUNT 3.11 M/mm3 (4.10-5.30); REDCELL DISTRIBUTION WIDTH-CV 12.4 % (11.5-14.5)
[2021-01-06 13:22] LABS: HEMATOCRIT 28.3 % (37.0-47.0); HEMOGLOBIN 8.8 g/dl (12.5-16.0); MEAN CORPUSCULAR HEMOGLOBIN 28 pg (27.0-31.0)
== END ==
LOC: ZLAB.STJ 12:59
PROVIDERS: Internal Medicine
DX: I63.411 Cerebral infarction due to embolism of right middle cerebral artery (principal)

== ENCOUNTER 2021-01-07 05:24 | Inpatient (IN) | payer MEDICARE ==
[~2021-01-07] VITALS: Ht 172.7 cm; Wt 75.0 kg
[~2021-01-07 05:24] MED LIST changes: -ATIVAN 0.50.5 MG/TAB PO; -ELIQUIS 5MG PEG; -JEVITY 1.5 CAL237 ML PO; -PACERONE400 MG PEG; -PROTONIX 40MG T40 MG PEG; -ROXANOL 20MG20 MG/ML SL; -TRANSDERM-0.5 MG/21 TD; -TYLENOL 325MG325 MG PEG
[2021-01-07 05:45] LABS: MEAN CELL VOLUME 92 fl (80.0-100.0); MEAN CORPUSCULAR HGB CONC 32 g/dl (33.0-37.0); MEAN PLATELET VOLUME 11.2 fl (7.4-10.4); PLATELET COUNT 351 K/mm3 (130-400); RED BLOOD COUNT 2.78 M/mm3 (4.10-5.30); REDCELL DISTRIBUTION WIDTH-CV 12.3 % (11.5-14.5)
[2021-01-07 05:48] LABS: HEMATOCRIT 25.6 % (37.0-47.0); HEMOGLOBIN 8.1 g/dl (12.5-16.0); MEAN CORPUSCULAR HEMOGLOBIN 29 pg (27.0-31.0)
[2021-01-07 05:49] LABS: INR 1.4 (0.8-3.0); PROTHROMBIN TIME 15.9 SECONDS (9.7-12.8)
[2021-01-07 05:53] LABS: ALBUMIN 3.4 gm/dL (3.5-5.0); BILIRUBIN,TOTAL 0.2 mg/dL (0.0-1.0); CREATININE, serum 1.04 (0.52-1.25); POTASSIUM 3.8 mmol/L (3.4-5.0); TOTAL PROTEIN 6.9 gm/dL (6.4-8.2)
[2021-01-07 05:54] LABS: COLLECTION METHOD CATHETER
[2021-01-07 05:57] LABS: STOOL FOR OCCULT BLOOD POSITIVE (NEGATIVE)
[2021-01-07 06:10] LABS: MUCOUS Present /lpf; PH 5 (5-8); URINE APPEARANCE Cloudy; URINE BACTERIA None Seen /hpf; URINE BILIRUBIN Negative (NEGATIVE); URINE BLOOD Negative (NEGATIVE); URINE COLOR Yellow; URINE GLUCOSE Negative (NEGATIVE); URINE KETONE Negative (NEGATIVE); URINE LEUKOCYTE ESTERASE 2+ (NEGATIVE); URINE NITRATE Negative (NEGATIVE); URINE PROTEIN(semi-quant) Negative (NEGATIVE); URINE RBC 0-2 /hpf; URINE UROBILINOGEN Negative (NEGATIVE)
[2021-01-07 06:14] LABS: BAND 1 % (0-10); HYPOCHROMIA 2+; LYMPHOCYTE 12 % (20.0-51.0); NEUTROPHILS 85 % (42.0-75.2); PLATELET ESTIMATE NORMAL (NORMAL)
[2021-01-07] MEDS ORDERED: ELIQUIS 5MG PEG (07:53)
[2021-01-07] MEDS ORDERED: PACERONE400 MG PEG (07:53)
[2021-01-07] MEDS ORDERED: TYLENOL 325MG325 MG PEG (08:20)
[2021-01-07] MEDS ORDERED: PROTONIX 40MG T40 MG PEG (09:25)
[2021-01-07] MEDS ORDERED: JEVITY 1.5 CAL237 ML PO (09:27)
--- NOTE | 2021-01-07 11:02 | NUR ---
Patient admitted from the ED for GI Bleed. Report recieved from COREY Peterson. Upon initial assessment, normal S1 and S2 sounds present, radial and pedal pulses +2 bilaterally, coarse crackles auscultated in all lung hernandez, bowel sound present in all four quadrants. PEG tube present. Double lumen PICC located on Right Upper Arm. Good blood return present. Patient is very drowsy and is unable to answer all orientation question appropriately. Left backwinder is weaker than the left, patient is unable to raise upper or lower extremities. Able to move feet. Right eye droop noted. VSS. Admission paperwork completed. Call light in reach. Fall precautions in place.
[2021-01-07 11:16] VITALS: BP 123/48; PULSE 65; TEMP 97.6
[2021-01-07 16:00] VITALS: BP 125/44; PULSE 71; TEMP 97.4
[2021-01-07 17:35] LABS: RETIC # 0.06 M/mm3 (0.02-0.16); RETIC % 2.5 % (0.5-3.52)
[2021-01-07 17:53] LABS: IRON,SERUM 20 ug/dL (35-150)
[2021-01-07 18:02] LABS: TOTAL IRON BINDING CAPACITY 235 ug/dL (265-497)
[2021-01-07 18:40] LABS: HEMATOCRIT 21.1 % (37.0-47.0); HEMOGLOBIN 6.7 g/dl (12.5-16.0)
--- NOTE | 2021-01-07 19:23 | NUR ---
Patient continues to be lethargic. Responds to name and touch. Follows commands, verbal responses delayed. NS running as ordered. Patient had one episode of bloody diarrhea this shift. Critical HGB recieved from lab, reported to ALONSO Alexander. Orders to transfuse 1 unit of blood now have been placed. Patient placed on 1.5 L of O2. No signs of pain, discomfort, or further needs at this time. VSS. Call light in reach.
[2021-01-07 21:07] VITALS: BP 126/39; PULSE 75; TEMP 97.8
[2021-01-07 22:23] VITALS: BP 125/41; PULSE 75; TEMP 97.5
--- NOTE | 2021-01-07 22:35 | NUR ---
Patient assessed at this time. Very sleepy, but awakens easily with verbal stimuli. Denies having pain and discomfort. Patient's had order for blood transfusion at beginning of shift. Called patient's DPOA, and this nurse and housekeeping aid verified consent with DPO for blood transfusion. Blood running at this time, with this nurse at bedside for first 15 minutes of transfusion. Tolerating well at this time. Double lumen PICC to RUE. Patient is on oxygen at 1 L/min via oxymask. Denies SOB and dyspnea when asked. LS CTA. Respirations even and unlabored. HRR. Telemetry in place: normal sinus. Capillary refill less than 3 seconds. Non-tenting skin turgor. BSAx4. PEG tube present, and received medications via PEG tube due to being NPO. Oral care provided. PEG tube is at the 4 cm rosita. No residual. Incontinent of bowel and bladder. Blood in stool. Pericare provided, and bed bath given. No edema. Resting in bed with call light within reach. High fall risk precautions in place.
[2021-01-07 22:38] VITALS: BP 125/42; PULSE 69; TEMP 97.5
[2021-01-07 23:08] VITALS: BP 139/50; PULSE 68
[2021-01-08] VITALS (7 sets, daily range): BP systolic 117–147; BP diastolic 36–53; PULSE 63–80; TEMP 97.4–98
--- NOTE | 2021-01-08 00:55 | NUR ---
Blood transfusion completed at this time. Order placed to recheck H&H at 0200
[2021-01-08 02:13] LABS: HEMATOCRIT 26.8 % (37.0-47.0); HEMOGLOBIN 8.7 g/dl (12.5-16.0)
--- NOTE | 2021-01-08 03:46 | NUR ---
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 MAINTENANCE DOSE OF 1 GM Q18H INITIATED AT THIS TIME. WILL FOLLOW RENAL FUNCTION, MICRO, AND TREATMENT PLAN FOR NEED TO ADJUST THERAPY. THANK YOU FOR THIS DOSING CONSULT!
--- NOTE | 2021-01-08 04:12 | NUR ---
Recheck of hemoglobin was 8.7. Patient's blood culture came back positive for MRSA. CENTRAL OFFICE MAINTAINER updated. New orders received. Patient resting in bed with call light within reach.
[2021-01-08 07:02] LABS: MEAN CELL VOLUME 92 fl (80.0-100.0); MEAN CORPUSCULAR HGB CONC 32 g/dl (33.0-37.0); MEAN PLATELET VOLUME 11.8 fl (7.4-10.4); PLATELET COUNT 312 K/mm3 (130-400); RED BLOOD COUNT 2.84 M/mm3 (4.10-5.30)
[2021-01-08 07:07] LABS: CALCIUM 8.1 mg/dL (8.4-10.2); CREATININE, serum 0.99 (0.52-1.25); POTASSIUM 3.4 mmol/L (3.4-5.0)
[2021-01-08 07:20] LABS: HEMATOCRIT 26.2 % (37.0-47.0); HEMOGLOBIN 8.4 g/dl (12.5-16.0); MEAN CORPUSCULAR HEMOGLOBIN 30 pg (27.0-31.0)
[2021-01-08 08:13] LABS: BAND 8 % (0-10); LYMPHOCYTE 5 % (20.0-51.0); METAMYELOCYTE 1 % (0-0); NEUTROPHILS 82 % (42.0-75.2); PLATELET ESTIMATE NORMAL (NORMAL)
--- NOTE | 2021-01-08 14:39 | NUR ---
Didier, at [facility], reports that they are able to accept the patient at the [facility] tomorrow, 01/09. She requests for a 1400 roll picker time. SYLVIE updated the clinical team. SYLVIE contacted and updated the patient's son, Adan. Adan is in agreement to the plan. SYLVIE also read the EMS Transfer Consent form outloud to Adan. Adan gave approval to sign the form on his behalf. *Discharge plan: [facility] 01/09*
--- NOTE | 2021-01-08 19:47 | NUR ---
Patient transitioned to hospice care today. Scheduled meds given. Shift assessment preformed. PICC line assessed, no complications evident. Q4 neuro checks completed. Patient repositioned Q2 hours. Patient still experiencing black tarry stools. Oral care preformed. Patient denies any pain, discomfort, or further needs at this time. VSS. Call light in reach.
--- NOTE | 2021-01-08 21:32 | NUR ---
Shift assessment completed. Patient resting in bed with eyes closed. Patient arousable with verbal and tactile stimulation. Patient opens eyes briefly but falls back to sleep immediately. Patient appears lethargic and drowsy. Patient is not oriented. PEG tube site C/D/I. NS running at 100ml/hr. Call light within reach. Will continue to monitor.
[2021-01-09] MEDS ORDERED: ROXANOL 20MG20 MG/ML SL (07:54)
[2021-01-09] MEDS ORDERED: TRANSDERM-0.5 MG/21 TD (07:54)
[2021-01-09] MEDS ORDERED: ATIVAN 0.50.5 MG/TAB PO (09:25)
--- NOTE | 2021-01-09 10:27 | NUR ---
The patient is to discharge today, 01/09, to the [facility]. Transportation was scheduled at 1400, via [facility]. SW notified the patient's son (Adan), Didier at [facility], and the patient's RN of the time. They were all in agreement to the time. No additioanal needs at this time.
--- NOTE | 2021-01-09 14:00 | NUR ---
Scheduled medications given. Shift assessment preformed. PICC line assessed, no signs of complications. Caps changed. Bed bath given, linens changed. Patient continues to deny any pain or discomfort. Patient continue to deny any pain or discomfort. VSS. Patient transferred to [facility] by EMS.
== END 2021-01-09 14:00 | disposition hospice, inpatient (51) | DRG 872 ==
LOC: COL.ER 05:24 → MEDICAL 08:47
PROVIDERS: Emergency Medicine; Family Medicine; Physician Assistant; ADMIT Student in an Organized Health Care Education/Training Program
PROC: 30233N1 Transfusion of Nonautologous Red Blood Cells into Peripheral Vein, Percutaneous Approach (ICD-10-PCS; principal; 2021-01-08)
DX: A41.2 Sepsis due to unspecified staphylococcus (principal); N39.0 Urinary tract infection, site not specified; G93.40 Encephalopathy, unspecified; I69.391 Dysphagia following cerebral infarction; I69.398 Other sequelae of cerebral infarction; I69.322 Dysarthria following cerebral infarction; I48.91 Unspecified atrial fibrillation; Z66 Do not resuscitate; Z51.5 Encounter for palliative care; Z20.822 Contact with and (suspected) exposure to COVID-19; I65.23 Occlusion and stenosis of bilateral carotid arteries; I10 Essential (primary) hypertension; R13.10 Dysphagia, unspecified; D72.829 Elevated white blood cell count, unspecified; E11.9 Type 2 diabetes mellitus without complications; D64.9 Anemia, unspecified; H54.7 Unspecified visual loss; E78.5 Hyperlipidemia, unspecified; R53.81 Other malaise; Z79.01 Long term (current) use of anticoagulants; Z79.82 Long term (current) use of aspirin; Z95.818 Presence of other cardiac implants and grafts; Z93.1 Gastrostomy status; Z88.0 Allergy status to penicillin
CPT/HCPCS: 99222-AI; 99223-AI; 99233-AI; 99239; C9113; J0696; J3370; J7030; J7050; P9016